=== PATIENT | female | born 1985 | race Caucasian/White ===

== ENCOUNTER → 2020-09-14 | Outpatient (CLI) | payer OTHER ==
[~2020-09-14] MED LIST: EPIPEN 2-P0.3 MG/0.3 INJ
[2020-09-14 11:22] LABS: HEMOGLOBIN 13.4 gm/dl (12.3-15.3); RED BLOOD COUNT 4.33 M/UL (4.00-5.10); WHITE BLOOD COUNT 8.7 K/UL (4.5-11.0)
[2020-09-14 12:11] LABS: BUN/CREATININE RATIO 10 (0-10)
== END ==
LOC: LAB 09:48
PROVIDERS: Nurse Practitioner Family
DX: Z13.220 Encounter for screening for lipoid disorders (principal); E03.9 Hypothyroidism, unspecified; E55.9 Vitamin D deficiency, unspecified
CPT/HCPCS: 36415; 80053; 80061; 82607; 84439; 84443; 85025

== ENCOUNTER → 2021-03-14 | Outpatient (CLI) | payer OTHER | LOC: LAB 07:55 | DX: E03.9 Hypothyroidism, unspecified (principal) | CPT/HCPCS: 36415; 84443 ==

== ENCOUNTER 2021-03-27 16:38 | Emergency (ER) | payer OTHER | END 2021-03-27 18:15 | disposition home or self-care (01) | LOC: ER1 16:38 | DX: R11.0 Nausea (principal); R51.9 Headache, unspecified; Z88.0 Allergy status to penicillin; Z91.013 Allergy to seafood; F17.290 Nicotine dependence, other tobacco product, uncomplicated | CPT/HCPCS: 99283 ==